=== PATIENT | male | born 1960 | race Caucasian/White ===

== ENCOUNTER → 2019-03-15 | Outpatient (REF) | payer OTHER, MEDICAID ==
[~2019-03-15] MED LIST: ASPI-527 PO; ASPI81TA45 PO; ATOR80TA59 PO; BUPR150T5 PO; CARV3.12 PO; CIPR-249 PO; CORE6.25 PO; FLAG500T PO; FLUO20CA19 PO; GABA-843 PO; HYDR-3716 PO; HYDR1CAP25 PO; LISI10TA4 PO; OMEP1CAP73 PO; PERC5TAB12 PO; PLAV1TAB2 PO; VARE05TA PO
[2019-03-15 18:05] LABS: BASO # 0.1 10^3/uL (0.0-0.2); BASO % 0.6 % (0.0-1.0); EOS # 0.2 10^3/uL (0.0-0.5); EOS % 1.5 % (0.0-3.0); HEMATOCRIT 50.6 % (42.0-52.0); HEMOGLOBIN 16.2 g/dl (13.5-17.5); LYMPH # 1.4 10^3/uL (1.5-5.0); LYMPH % 14.1 % (24.0-44.0); MEAN CORPUSCULAR HEMOGLOBIN 29.3 pg (27.0-33.0); MEAN CORPUSCULAR VOLUME 91.5 fl (80.0-96.0); MONO # 1.1 10^3/uL (0.0-0.8); MONO % 10.8 % (0.0-5.0); NEUTROPHILS % 72.1 % (36.0-66.0); PLATELET COUNT, AUTOMATED 318 10^3/uL (150-450); RED BLOOD COUNT 5.53 10^6/uL (4.30-6.10); WHITE BLOOD COUNT 9.7 10^3/uL (4.0-10.0)
[2019-03-15 18:32] LABS: ALBUMIN 4.1 GM/DL (3.2-5.2); ALT/SGPT 29 U/L (12-78); BILIRUBIN,TOTAL 0.4 MG/DL (0.2-1.0); BLOOD UREA NITROGEN 21 MG/DL (7-18); CALCIUM LEVEL 9.3 MG/DL (8.5-10.1); CARBON DIOXIDE LEVEL 26 MEQ/L (21-32); CHLORIDE LEVEL 104 MEQ/L (98-107); CHOLESTEROL LEVEL 134 MG/DL (<200); CHOLESTEROL RISK RATIO 2.627 (<5); CREATININE FOR GFR 1.16 MG/DL (0.70-1.30); FREE T4 1.06 NG/DL (0.76-1.46); GLOMERULAR FILTRATION RATE > 60.0 (>56); GLUCOSE, FASTING 117 MG/DL (70-100); HDL CHOLESTEROL 51 MG/DL (>40); LDL CHOLESTEROL 51 MG/DL (<100); NON-HDL-C 83 MG/DL; POTASSIUM SERUM 5.5 MEQ/L (3.5-5.1); SODIUM LEVEL 136 MEQ/L (136-145); THYROID STIMULATING HORMONE 0.738 uIU/ML (0.358-3.740); TOTAL PROTEIN 7.6 GM/DL (6.4-8.2); TRIGLYCERIDES LEVEL 161 MG/DL (<150)
[2019-03-15 18:35] LABS: TOTAL 25(OH) VITAMIN D 16.4 NG/ML (30.0-100.0)
[2019-03-15 18:54] LABS: HEMOGLOBIN A1c 6.3 %
== END ==
LOC: M LAB REF 17:06
PROVIDERS: ATTEND Family Medicine
DX: I25.10 Atherosclerotic heart disease of native coronary artery without angina pectoris (principal); E11.9 Type 2 diabetes mellitus without complications

== ENCOUNTER → 2019-03-23 | Outpatient (CLI) | payer MEDICAID | LOC: M OUTALCOH 07:46 | PROVIDERS: ATTEND Psychiatry & Neurology Addiction Medicine | DX: F12.20 Cannabis dependence, uncomplicated (principal) ==

== ENCOUNTER → 2019-03-31 | Outpatient (RCR) | payer MEDICAID | LOC: M OUTALCOH 13:22 | PROVIDERS: ATTEND Psychiatry & Neurology Addiction Medicine | DX: F12.20 Cannabis dependence, uncomplicated (principal); F17.200 Nicotine dependence, unspecified, uncomplicated ==

== ENCOUNTER → 2019-04-14 | Outpatient (REF) | payer MEDICAID, OTHER ==
[~2019-04-14] MED LIST changes: -FLUO20CA19 PO; +FLUO20CA22 PO
[2019-04-14 12:21] LABS: BASO % 0.6 % (0.0-1.0); EOS # 0.3 10^3/uL (0.0-0.5); EOS % 3.8 % (0.0-3.0); HEMATOCRIT 47.2 % (42.0-52.0); HEMOGLOBIN 15.1 g/dl (13.5-17.5); LYMPH # 1.8 10^3/uL (1.5-5.0); LYMPH % 26.1 % (24.0-44.0); MEAN CORPUSCULAR HEMOGLOBIN 29.3 pg (27.0-33.0); MEAN CORPUSCULAR VOLUME 91.7 fl (80.0-96.0); MONO # 0.7 10^3/uL (0.0-0.8); MONO % 9.9 % (0.0-5.0); NEUTROPHILS # 4.1 10^3/uL (1.5-8.5); NEUTROPHILS % 58.7 % (36.0-66.0); PLATELET COUNT, AUTOMATED 294 10^3/uL (150-450); RED BLOOD COUNT 5.15 10^6/uL (4.30-6.10); WHITE BLOOD COUNT 6.9 10^3/uL (4.0-10.0)
[2019-04-14 12:40] LABS: ALBUMIN 3.9 GM/DL (3.2-5.2); ALT/SGPT 32 U/L (12-78); BILIRUBIN,TOTAL 0.2 MG/DL (0.2-1.0); BLOOD UREA NITROGEN 18 MG/DL (7-18); CALCIUM LEVEL 9.3 MG/DL (8.5-10.1); CARBON DIOXIDE LEVEL 30 MEQ/L (21-32); CHLORIDE LEVEL 103 MEQ/L (98-107); CREATININE FOR GFR 0.99 MG/DL (0.70-1.30); GLOMERULAR FILTRATION RATE > 60.0 (>56); GLUCOSE, FASTING 136 MG/DL (70-100); POTASSIUM SERUM 4.5 MEQ/L (3.5-5.1); SODIUM LEVEL 142 MEQ/L (136-145); TOTAL PROTEIN 6.7 GM/DL (6.4-8.2)
[2019-04-14 13:07] LABS: HEMOGLOBIN A1c 6.3 %
== END ==
LOC: M LAB REF 11:33
PROVIDERS: ATTEND Family Medicine Addiction Medicine
DX: E11.9 Type 2 diabetes mellitus without complications (principal)

== ENCOUNTER 2019-06-10 17:02 | Emergency (ER) | payer MEDICAID ==
[~2019-06-10] VITALS: Ht 179.3 cm; Wt 90.7 kg
[2019-06-10 17:06] VITALS: BP 222/103
[2019-06-10] MEDS ORDERED: METF500T13 PO (17:22)
[2019-06-10] MEDS ORDERED: SUBO8MIS PO (17:22)
== END 2019-06-10 18:17 | disposition left against medical advice (07) ==
LOC: M ED 17:02
DX: Z53.21 Procedure and treatment not carried out due to patient leaving prior to being seen by health care provider (principal)

== ENCOUNTER → 2019-12-19 | Outpatient (REF) | payer OTHER ==
[~2019-12-19] MED LIST changes: +METF500T13 PO; +SUBO8MIS PO
== END ==
LOC: M LAB REF 15:31
PROVIDERS: ATTEND Surgery
DX: U07.1 COVID-19 (principal)

== ENCOUNTER 2020-09-25 07:34 | Emergency (ER) | payer OTHER ==
[~2020-09-25] VITALS: Ht 177.8 cm; Wt 83.2 kg
[~2020-09-25 07:34] MED LIST changes: +GABA-282 PO; -GABA-843 PO; +LISI10TA22 PO; -LISI10TA4 PO
[2020-09-25 07:45] VITALS: BP 158/72
== END 2020-09-25 09:11 | disposition left against medical advice (07) ==
LOC: M ED 07:34
DX: Z53.21 Procedure and treatment not carried out due to patient leaving prior to being seen by health care provider (principal)

== ENCOUNTER 2020-11-08 11:26 | Emergency (ER) | payer MEDICAID, OTHER ==
[~2020-11-08] VITALS: Ht 165.1 cm; Wt 84.1 kg
[2020-11-08] MEDS ORDERED: CLON-412 (11:37)
[2020-11-08] MEDS ORDERED: METO1TAB7 (11:37)
[2020-11-08] MEDS ORDERED: LISI20TA33 (11:37)
[2020-11-08 14:06] LABS: C REACTIVE PROTEIN QUANTITATIV 13.2 MG/DL (0.00-0.30)
[2020-11-08 14:42] LABS: BASO % 0.3 % (0.0-1.0); EOS # 0.1 10^3/uL (0.0-0.5); EOS % 0.9 % (0.0-3.0); HEMATOCRIT 37.7 % (42.0-52.0); HEMOGLOBIN 12.2 g/dl (13.5-17.5); LYMPH % 7.3 % (24.0-44.0); MEAN CORPUSCULAR HEMOGLOBIN 29.7 pg (27.0-33.0); MEAN CORPUSCULAR HGB CONC 32.4 g/dl (32.0-36.5); MEAN CORPUSCULAR VOLUME 91.7 fl (80.0-96.0); MONO # 1.3 10^3/uL (0.0-0.8); MONO % 9.1 % (2.0-8.0); NEUTROPHILS # 11.4 10^3/uL (1.5-8.5); NEUTROPHILS % 81.8 % (36.0-66.0); PLATELET COUNT, AUTOMATED 334 10^3/uL (150-450); RED BLOOD COUNT 4.11 10^6/uL (4.30-6.10); WHITE BLOOD COUNT 13.9 10^3/uL (4.0-10.0)
[2020-11-08 15:16] LABS: ERYTHROCYTE SEDIMENTATION RATE 57 mm/hr (0-20)
[2020-11-08] MEDS ORDERED: ACETAMINOPHEN TAB 650MG DOSE (2X325MG) PO ONE (15:50)
[2020-11-08] MEDS ORDERED: cefTRIAXone SOD 1 GM in D5W MINI-BAG PLUS 50 ML IV ONE (17:20)
--- NOTE | 2020-11-08 17:49 | REP ---
INDICATION: swelling pain/trauma/blood thinner COMPARISON: None. TECHNIQUE: Real time compression and duplex Doppler interrogation of the right lower extremity deep venous system is performed, including the left common femoral vein.Compression of the right peroneal and posterior tibial veins is performed. FINDINGS: The right common femoral, superficial femoral and popliteal veins are fully compressible with transducer pressure and demonstrate normal spontaneous and phasic flow, without evidence of deep venous thrombosis.The left common femoral vein demonstrates no thrombus.The right peroneal and posterior tibial veins not be seen due to soft tissue edema.. IMPRESSION: No evidence of deep venous thrombosis of the right lower extremity femoral popliteal venous system.The visualized right peroneal and posterior tibial veins demonstrate no thrombus. <Electronically signed by Kris Mccabe > 11/08/20 [id number]
--- NOTE | 2020-11-08 17:57 | REP ---
INDICATION: fall COMPARISON: 04/14/2013 TECHNIQUE: Five views right knee. FINDINGS: There is no evidence of acute fracture, dislocation, or intrinsic bone disease.Moderate soft tissue swelling is seen of the anterior soft tissues. There is mild medial joint space narrowing. Tiny spur is noted of the superior pole of the patella. Two metallic clips are seen in the medial soft tissues. Vascular calcifications are noted. IMPRESSION: No fracture or dislocation. Anterior soft tissue swelling. <Electronically signed by Kris Mccabe > 11/08/20 [id number]
[2020-11-08 18:27] LABS: BILIRUBIN,DIRECT 0.2 MG/DL (0.0-0.2); BILIRUBIN,TOTAL 0.6 MG/DL (0.2-1.0); TOTAL PROTEIN 6.7 GM/DL (6.4-8.2)
[2020-11-08] MEDS ORDERED: DOXY1CAP62 PO (19:24)
[2020-11-08 19:36] VITALS: BP 122/61
== END 2020-11-08 19:40 | disposition home or self-care (01) ==
LOC: M ED 11:26
DX: L03.115 Cellulitis of right lower limb (principal); F17.200 Nicotine dependence, unspecified, uncomplicated
CPT/HCPCS: 73564; 80047; 80076; 83690; 85025; 85652; 86140; 87040; 93971; 96365; 96366; 99283; J0696

== ENCOUNTER 2021-03-31 12:08 | Emergency (ER) | payer OTHER ==
[~2021-03-31] VITALS: Ht 177.8 cm; Wt 85.5 kg
[~2021-03-31 12:08] MED LIST changes: +CLON-412; +DOXY-443 PO; +LISI20TA33; +METO1TAB7
[2021-03-31] MEDS ORDERED: FLUO40CA PO (14:36)
[2021-03-31] MEDS ORDERED: PLAV1TAB2 PO (14:37)
[2021-03-31] MEDS ORDERED: ATOR40TA75 PO (14:37)
[2021-03-31] MEDS ORDERED: ASPI81TA26 PO (14:38)
[2021-03-31] MEDS ORDERED: MIRT1TAB15 PO (14:39)
[2021-03-31] MEDS ORDERED: METF-839 PO (14:40)
[2021-03-31] MEDS ORDERED: PANT40TA29 PO (14:41)
[2021-03-31] MEDS ORDERED: CLONI1TA PO (14:42)
[2021-03-31] MEDS ORDERED: PRAZ2CAP PO (14:45)
[2021-03-31 14:50] VITALS: BP 163/80
== END 2021-03-31 15:37 | disposition home or self-care (01) ==
LOC: M ED 12:08
DX: F31.9 Bipolar disorder, unspecified (principal); Z76.0 Encounter for issue of repeat prescription; I25.2 Old myocardial infarction; F32.A Depression, unspecified; E11.9 Type 2 diabetes mellitus without complications; I10 Essential (primary) hypertension; F17.200 Nicotine dependence, unspecified, uncomplicated; F11.10 Opioid abuse, uncomplicated

== ENCOUNTER 2021-06-28 17:02 | Emergency (ER) | payer OTHER, SELFPAY ==
[~2021-06-28] VITALS: Ht 177.8 cm; Wt 88.2 kg
[~2021-06-28 17:02] MED LIST changes: +ASPI81TA26 PO; +ATOR40TA75 PO; +BUPR-71 PO; -BUPR150T5 PO; +CLONI1TA PO; +FLUO40CA PO; +METF-839 PO; +MIRT1TAB15 PO; +PANT40TA29 PO; +PRAZ2CAP PO
[2021-06-28] MEDS ORDERED: ACETAMINOPHEN 500 MG TAB PO ONE (20:00)
[2021-06-29 00:18] LABS: AMPHETAMINES LEVEL URINE NEGATIVE (NEGATIVE); BARBITURATES URINE NEGATIVE (NEGATIVE); BENZODIAZEPINES URINE NEGATIVE (NEGATIVE); CANNABINOIDS URINE POSITIVE (NEGATIVE); COCAINE METABOLITE URINE POSITIVE (NEGATIVE); METHADONE URINE NEGATIVE (NEGATIVE); OPIATES URINE NEGATIVE (NEGATIVE); PHENCYCLIDINE URINE NEGATIVE (NEGATIVE)
[2021-06-29 01:12] LABS: GC DNA AMPLIFICATION NEGATIVE (NEGATIVE)
[2021-06-29] MEDS ORDERED: CIPROFLOXACIN 500MG TABLET PO ONE (01:55)
[2021-06-29] MEDS ORDERED: CIPR-249 PO (02:03)
[2021-06-29 02:30] VITALS: BP 123/67
== END 2021-06-29 02:29 | disposition home or self-care (01) ==
LOC: M ED 17:02
DX: N39.0 Urinary tract infection, site not specified (principal); E11.9 Type 2 diabetes mellitus without complications; I10 Essential (primary) hypertension; I25.2 Old myocardial infarction; E78.5 Hyperlipidemia, unspecified; F31.9 Bipolar disorder, unspecified; K21.9 Gastro-esophageal reflux disease without esophagitis; M54.9 Dorsalgia, unspecified; Z95.5 Presence of coronary angioplasty implant and graft; Z79.899 Other long term (current) drug therapy; Z79.84 Long term (current) use of oral hypoglycemic drugs; Z79.82 Long term (current) use of aspirin; Z79.01 Long term (current) use of anticoagulants; F17.210 Nicotine dependence, cigarettes, uncomplicated; F12.20 Cannabis dependence, uncomplicated

== ENCOUNTER 2021-07-01 16:46 | Inpatient (IN) | payer MEDICAID, OTHER ==
[~2021-07-01] VITALS: Ht 182.9 cm; Wt 90.4 kg
[2021-07-01] MEDS ORDERED: CLOPIDOGREL 300 MG TAB (PLAVIX) PO ONE (17:05)
[2021-07-01] MEDS ORDERED: ASPIRIN 81 MG CHEW TABLET PO ONE (17:05)
[2021-07-01] MEDS ORDERED: NITROGLYCERIN 0.4 MG SUBL TABLET SL PRN (17:05)
[2021-07-01] MEDS ORDERED: FUROSEMIDE 40MG/4ML VIAL (J1940) IV ONE (17:15)
[2021-07-01 17:52] LABS: BASO # 0.1 10^3/uL (0.0-0.2); BASO % 0.3 % (0.0-1.0); HEMATOCRIT 47.4 % (42.0-52.0); LYMPH # 0.4 10^3/uL (1.5-5.0); LYMPH % 2.9 % (24.0-44.0); MEAN CORPUSCULAR HEMOGLOBIN 29.4 pg (27.0-33.0); MEAN CORPUSCULAR HGB CONC 31.6 g/dl (32.0-36.5); MEAN CORPUSCULAR VOLUME 92.9 fl (80.0-96.0); MONO # 0.7 10^3/uL (0.0-0.8); MONO % 4.5 % (2.0-8.0); NEUTROPHILS # 13.5 10^3/uL (1.5-8.5); NEUTROPHILS % 90.9 % (36.0-66.0); PLATELET COUNT, AUTOMATED 344 10^3/uL (150-450); WHITE BLOOD COUNT 14.8 10^3/uL (4.0-10.0)
[2021-07-01] MEDS ORDERED: NALOXONE INJ 0.4MG/1ML VIAL (J2310 PER 1MG) IV STA ×3 (17:59→19:48)
[2021-07-01] MEDS ORDERED: LISI20TA33 (18:01)
[2021-07-01] MEDS ORDERED: MULT-90 (18:01)
[2021-07-01] MEDS ORDERED: MIRT-10 (18:01)
[2021-07-01] MEDS ORDERED: OMEP-173 (18:01)
[2021-07-01] MEDS ORDERED: BUPR-71 (18:01)
[2021-07-01] MEDS ORDERED: ALBU8.5H (18:01)
[2021-07-01] MEDS ORDERED: CIPR500T39 (18:01)
[2021-07-01] MEDS ORDERED: METF500T13 (18:01)
[2021-07-01] MEDS ORDERED: AZITHROMYCIN INJ 500 MG, VIAL MATE ADAPTER 1 EACH in NS 250 ML IV ONE (18:05)
[2021-07-01] MEDS ORDERED: cefTRIAXone SOD 2 GM in D5W MINI-BAG PLUS 50 ML IV ONE (18:05)
[2021-07-01] MEDS ORDERED: VANCOMYCIN HCL 1,750 MG in IV FLUID PLACE HOLDER 1 EA IV ONE (18:05)
[2021-07-01 18:07] LABS: INR 1.06; PROTHROMBIN TIME 14.2 SECONDS (12.7-14.5)
[2021-07-01 18:08] LABS: PARTIAL THROMBOPLASTIN TIME 28.4 SECONDS (25.9-37.0)
[2021-07-01 18:28] LABS: ABG BASE EXCESS -6.4 (-2.0-2.0); ABG HCO3 22.4 MEQ/L (22.0-26.0); ABG O2 SATURATION 95.6 % (95.0-99.0); ABG PARTIAL PRESSURE CO2 57.4 mmHg (35.0-45.0); ABG PARTIAL PRESSURE O2 82.7 mmHg (75.0-100.0); ABG STANDARD HCO3 19.3 MEQ/L (22.0-26.0); ABG TOTAL CO2 24.2 MEQ/L (22.0-29.0)
[2021-07-01 18:29] LABS: ABG pH (ARTERIAL) 7.209 UNITS (7.350-7.450)
[2021-07-01 18:38] LABS: RSV AMPLIFICATION NEGATIVE (NEGATIVE)
[2021-07-01 18:39] LABS: CALCIUM LEVEL 9.2 MG/DL (8.5-10.1); CREATININE FOR GFR 1.97 MG/DL (0.70-1.30); GLOMERULAR FILTRATION RATE 37.4 (>56); POTASSIUM SERUM 5.2 MEQ/L (3.5-5.1)
[2021-07-01] MEDS ORDERED: VANCOMYCIN HCL 1,000 MG, VIAL MATE ADAPTER 1 EACH in NS 250 ML IV ONE (19:00)
[2021-07-01] MEDS ORDERED: HALOPERIDOL 5MG/ML VIAL (J1630 PER 1) IV ONE (19:20)
[2021-07-01 19:45] LABS: CK-MB VALUE MASS 537.5 NG/ML (<3.6); MB/CK RELATIVE INDEX 1.6 (< OR =4)
[2021-07-01] MEDS ORDERED: VANCOMYCIN HCL 750 MG, VIAL MATE ADAPTER 1 EACH in NS 250 ML IV ONE (20:00)
[2021-07-01] MEDS ORDERED: LIDOCAINE 2% 5ML JELLY UROJET TOP ONE (20:05)
[2021-07-01 20:42] LABS: AMPHETAMINES LEVEL URINE POSITIVE (NEGATIVE); BARBITURATES URINE NEGATIVE (NEGATIVE); BENZODIAZEPINES URINE NEGATIVE (NEGATIVE); CANNABINOIDS URINE NEGATIVE (NEGATIVE); COCAINE METABOLITE URINE NEGATIVE (NEGATIVE); METHADONE URINE NEGATIVE (NEGATIVE); OPIATES URINE NEGATIVE (NEGATIVE); PHENCYCLIDINE URINE NEGATIVE (NEGATIVE)
[2021-07-01] MEDS ORDERED: HEPARIN SOD (PORCINE) 5000UNITS/ML 1ML VIAL/SYRINGE IV PRN (21:50)
[2021-07-01] MEDS ORDERED: DEXTROSE 50% 50 ML SYRINGE IV PRN (21:50)
[2021-07-01] MEDS ORDERED: HEPARIN SOD (PORCINE) 5000UNITS/ML 1ML VIAL/SYRINGE IV ONE (21:50)
[2021-07-01] MEDS ORDERED: GLUCAGON INJ 1MG VIAL SC PRN (21:50)
[2021-07-01] MEDS ORDERED: GLUCOSE 4GM CHEW TABLET PO PRN (21:50)
[2021-07-01] MEDS ORDERED: NS 1,000 ML IV ONE (22:20)
[2021-07-01] MEDS ORDERED: IPRATROPIUM 0.5MG/ALBUTEROL 2.5MG INH SOL UD 3ML (DUONEB) INH PRN (22:20)
[2021-07-01] MEDS: HEPARIN DRIP 25,000 UNITS in IV 1 EA IV SCH (22:44)
[2021-07-01] MEDS: ATORVASTATIN 20 MG TAB PO SCH (23:46)
[2021-07-01 23:47] LABS: ALBUMIN 3.3 GM/DL (3.2-5.2); BILIRUBIN,TOTAL 0.3 MG/DL (0.2-1.0); CALCIUM LEVEL 8.6 MG/DL (8.5-10.1); CREATININE FOR GFR 1.88 MG/DL (0.70-1.30); GLOMERULAR FILTRATION RATE 39.4 (>56); MAGNESIUM LEVEL 1.8 MG/DL (1.8-2.4); POTASSIUM SERUM 4.9 MEQ/L (3.5-5.1); TOTAL PROTEIN 6.4 GM/DL (6.4-8.2)
[2021-07-01] MEDS: NS 1,000 ML IV SCH (23:47)
[2021-07-02] VITALS (13 sets, daily range): BP systolic 116–161; BP diastolic 63–90
[2021-07-02] MEDS ORDERED: CLOP75TA2 PO (00:15)
[2021-07-02] MEDS ORDERED: CIPR-249 PO (00:15)
[2021-07-02] MEDS ORDERED: ASPI-161 PO (00:15)
[2021-07-02] MEDS ORDERED: ATOR40TA75 PO (00:15)
[2021-07-02] MEDS ORDERED: BUPR15TASR PO (00:15)
[2021-07-02] MEDS ORDERED: METO1TAB7 PO (00:15)
[2021-07-02] MEDS ORDERED: MIRT-62 PO (00:15)
[2021-07-02] MEDS ORDERED: METF-839 PO (00:15)
[2021-07-02] MEDS ORDERED: PANT40TA29 PO (00:15)
[2021-07-02] MEDS ORDERED: CLONI1TA PO (00:15)
[2021-07-02] MEDS ORDERED: FLUO40CA PO (00:15)
[2021-07-02] MEDS ORDERED: PRAZ2CAP PO (00:15)
[2021-07-02] MEDS ORDERED: LISI20TA33 PO (00:15)
[2021-07-02] MEDS ORDERED: PATIENT COMMENT (00:16)
[2021-07-02] MEDS ORDERED: HOME MED LIST COMPLETE! XX SCH (00:20)
[2021-07-02] MEDS: PIPERACILLIN/TAZOBACTAM SOD 4.5 GM in D5W MINI-BAG PLUS 50 ML IV SCH ×4 (01:06→19:37)
[2021-07-02] MEDS: NS 1,000 ML IV SCH ×6 (01:29→19:59)
[2021-07-02] MEDS: ACETAMINOPHEN TAB 650MG DOSE (2X325MG) PO PRN (04:47)
[2021-07-02 05:44] LABS: BASO % 0.2 % (0.0-1.0); EOS % 0.2 % (0.0-3.0); HEMOGLOBIN 13.5 g/dl (13.5-17.5); LYMPH # 0.8 10^3/uL (1.5-5.0); LYMPH % 4.2 % (24.0-44.0); MEAN CORPUSCULAR HEMOGLOBIN 29.8 pg (27.0-33.0); MEAN CORPUSCULAR HGB CONC 32.1 g/dl (32.0-36.5); MEAN CORPUSCULAR VOLUME 92.7 fl (80.0-96.0); MONO # 0.9 10^3/uL (0.0-0.8); MONO % 4.5 % (2.0-8.0); NEUTROPHILS # 17.2 10^3/uL (1.5-8.5); NEUTROPHILS % 90.2 % (36.0-66.0); PLATELET COUNT, AUTOMATED 271 10^3/uL (150-450); RED BLOOD COUNT 4.53 10^6/uL (4.30-6.10)
[2021-07-02 05:57] LABS: APPEARANCE, URINE CLOUDY (CLEAR); BACTERIA, URINE AUTO NEGATIVE (NEGATIVE); BILIRUBIN, URINE AUTO NEGATIVE (NEGATIVE); BLOOD, URINE BLOOD 3+ (NEGATIVE); COLOR, URINE YELLOW (YELLOW); GLUCOSE, URINE (UA) AUTO NEGATIVE (NEGATIVE); KETONE, URINE AUTO NEGATIVE (NEGATIVE); LEUKOCYTE ESTERASE, URINE AUTO NEGATIVE (NEGATIVE); MUCUS, URINE SMALL (NEGATIVE); NITRITE, URINE AUTO NEGATIVE (NEGATIVE); PROTEIN, URINE AUTO 2+ mg/dL (NEGATIVE); RBC, URINE AUTO TNTC /HPF (0-3); SPECIFIC GRAVITY URINE AUTO 1.012 (1.002-1.035); SQUAMOUS EPITHELIAL CELL UR AU 1 /HPF (0-6); UROBILINOGEN, URINE AUTO 0.2 mg/dL (0.0-2.0); WBC, URINE AUTO 12 /HPF (0-3)
[2021-07-02] MEDS ORDERED: DOXYCYCLINE HYCLATE 100 MG in D5W MINI-BAG PLUS 100 ML IV SCH (06:00)
[2021-07-02 06:03] LABS: HEMOGLOBIN A1c 6.1 %
[2021-07-02 06:46] LABS: ALBUMIN 2.7 GM/DL (3.2-5.2); BILIRUBIN,DIRECT 0.1 MG/DL (0.0-0.2); BILIRUBIN,TOTAL 0.4 MG/DL (0.2-1.0); CALCIUM LEVEL 7.9 MG/DL (8.5-10.1); CHOLESTEROL RISK RATIO 1.481 (<5); CREATININE FOR GFR 2.09 MG/DL (0.70-1.30); GLOMERULAR FILTRATION RATE 34.9 (>56); POTASSIUM SERUM 4.9 MEQ/L (3.5-5.1); TOTAL PROTEIN 5.7 GM/DL (6.4-8.2)
[2021-07-02] MEDS: VANCOMYCIN HCL 750 MG, VIAL MATE ADAPTER 1 EACH in NS 250 ML IV SCH ×2 (08:04→20:54)
[2021-07-02] MEDS: CLOPIDOGREL 75 MG TAB PO SCH (08:05)
[2021-07-02 08:18] LABS: ABG BASE EXCESS -4.6 (-2.0-2.0); ABG HCO3 21.2 MEQ/L (22.0-26.0); ABG O2 SATURATION 91.1 % (95.0-99.0); ABG PARTIAL PRESSURE CO2 41.7 mmHg (35.0-45.0); ABG PARTIAL PRESSURE O2 60.8 mmHg (75.0-100.0); ABG STANDARD HCO3 20.6 MEQ/L (22.0-26.0); ABG TOTAL CO2 22.5 MEQ/L (22.0-29.0); ABG pH (ARTERIAL) 7.324 UNITS (7.350-7.450)
[2021-07-02 09:37] LABS: CK-MB VALUE MASS 693.2 NG/ML (<3.6); MB/CK RELATIVE INDEX 2.25 (< OR =4)
[2021-07-02] MEDS ORDERED: LORazepam 2 MG/ML VIAL IV STA ×2 (09:40→15:48)
[2021-07-02 10:31] LABS: MB/CK RELATIVE INDEX 2.59 (< OR =4)
[2021-07-02] MEDS ORDERED: SUBO2MIS SL (12:41)
[2021-07-02] MEDS: BUPRENORPHINE/NALOXONE 2-0.5MG SUBLINGUAL TABLET(SUBOXONE) SL SCH (14:18)
[2021-07-02 16:11] LABS: MB/CK RELATIVE INDEX 2.53 (< OR =4)
[2021-07-02 16:44] LABS: CK-MB VALUE MASS 583.7 NG/ML (<3.6)
[2021-07-02] MEDS: HEPARIN DRIP 25,000 UNITS in IV 1 EA IV SCH (17:03)
[2021-07-02] MEDS ORDERED: cefTRIAXone SOD 1 GM in D5W MINI-BAG PLUS 50 ML IV SCH (18:00)
[2021-07-02 19:51] LABS: MB/CK RELATIVE INDEX 1.87 (< OR =4)
[2021-07-02] MEDS: ATORVASTATIN 20 MG TAB PO SCH (20:53)
[2021-07-02] MEDS: ASPIRIN 325 MG TAB PO SCH (20:53)
[2021-07-02] MEDS: LIDOCAINE 5% (LIDODERM) PATCH TOP PRN (20:54)
[2021-07-02] MEDS: **NOTE PATIENT COMMENT** MISC XX SCH (21:00)
[2021-07-03] VITALS (17 sets, daily range): BP systolic 119–181; BP diastolic 58–90
[2021-07-03] MEDS: NS 1,000 ML IV SCH ×5 (00:06→20:53)
[2021-07-03] MEDS: PIPERACILLIN/TAZOBACTAM SOD 4.5 GM in D5W MINI-BAG PLUS 50 ML IV SCH ×4 (00:46→19:46)
[2021-07-03 05:10] LABS: BASO % 0.2 % (0.0-1.0); EOS # 0.1 10^3/uL (0.0-0.5); EOS % 0.8 % (0.0-3.0); HEMATOCRIT 34.1 % (42.0-52.0); LYMPH # 0.5 10^3/uL (1.5-5.0); LYMPH % 3.8 % (24.0-44.0); MEAN CORPUSCULAR HEMOGLOBIN 29.3 pg (27.0-33.0); MEAN CORPUSCULAR HGB CONC 32.3 g/dl (32.0-36.5); MEAN CORPUSCULAR VOLUME 90.9 fl (80.0-96.0); MONO # 0.6 10^3/uL (0.0-0.8); MONO % 4.9 % (2.0-8.0); NEUTROPHILS # 11.4 10^3/uL (1.5-8.5); NEUTROPHILS % 89.2 % (36.0-66.0); PLATELET COUNT, AUTOMATED 252 10^3/uL (150-450); RED BLOOD COUNT 3.75 10^6/uL (4.30-6.10); WHITE BLOOD COUNT 12.8 10^3/uL (4.0-10.0)
[2021-07-03 05:42] LABS: ALBUMIN 2.1 GM/DL (3.2-5.2); BILIRUBIN,DIRECT 0.1 MG/DL (0.0-0.2); BILIRUBIN,TOTAL 0.4 MG/DL (0.2-1.0); CALCIUM LEVEL 8.1 MG/DL (8.5-10.1); CREATININE FOR GFR 1.57 MG/DL (0.70-1.30); GLOMERULAR FILTRATION RATE 48.5 (>56); POTASSIUM SERUM 3.8 MEQ/L (3.5-5.1); TOTAL PROTEIN 5.4 GM/DL (6.4-8.2)
[2021-07-03] MEDS: HEPARIN DRIP 25,000 UNITS in IV 1 EA IV SCH ×2 (07:17→08:33)
[2021-07-03] MEDS: HumaLOG INSULIN (NovoLOG) PER UNIT SC SCH ×4 (07:30→20:50)
[2021-07-03 08:07] LABS: MAGNESIUM LEVEL 2.3 MG/DL (1.8-2.4)
[2021-07-03] MEDS: VANCOMYCIN HCL 750 MG, VIAL MATE ADAPTER 1 EACH in NS 250 ML IV SCH ×2 (08:54→20:46)
[2021-07-03] MEDS: CLOPIDOGREL 75 MG TAB PO SCH (08:55)
[2021-07-03] MEDS: ACETAMINOPHEN TAB 650MG DOSE (2X325MG) PO PRN ×2 (08:55→20:46)
[2021-07-03] MEDS: BUPRENORPHINE/NALOXONE 2-0.5MG SUBLINGUAL TABLET(SUBOXONE) SL SCH (09:18)
[2021-07-03] MEDS ORDERED: LIDOCAINE 1% MDV 20ML VIAL As Ordered ONE (14:33)
[2021-07-03] MEDS: ASPIRIN 325 MG TAB PO SCH (20:46)
[2021-07-03] MEDS: ATORVASTATIN 20 MG TAB PO SCH (20:46)
[2021-07-03] MEDS: **NOTE PATIENT COMMENT** MISC XX SCH (20:57)
[2021-07-04] VITALS (10 sets, daily range): BP systolic 118–155; BP diastolic 60–78
[2021-07-04] MEDS: PIPERACILLIN/TAZOBACTAM SOD 4.5 GM in D5W MINI-BAG PLUS 50 ML IV SCH ×4 (00:47→18:05)
[2021-07-04] MEDS: HEPARIN DRIP 25,000 UNITS in IV 1 EA IV SCH ×2 (00:49→12:16)
[2021-07-04] MEDS: ACETAMINOPHEN TAB 650MG DOSE (2X325MG) PO PRN ×3 (04:42→23:32)
[2021-07-04 04:54] LABS: BASO # 0.1 10^3/uL (0.0-0.2); BASO % 0.4 % (0.0-1.0); EOS # 0.2 10^3/uL (0.0-0.5); EOS % 1.7 % (0.0-3.0); HEMATOCRIT 30.7 % (42.0-52.0); HEMOGLOBIN 9.9 g/dl (13.5-17.5); LYMPH # 0.6 10^3/uL (1.5-5.0); LYMPH % 5.1 % (24.0-44.0); MEAN CORPUSCULAR HEMOGLOBIN 29.6 pg (27.0-33.0); MEAN CORPUSCULAR HGB CONC 32.2 g/dl (32.0-36.5); MEAN CORPUSCULAR VOLUME 91.9 fl (80.0-96.0); MONO # 0.7 10^3/uL (0.0-0.8); MONO % 5.4 % (2.0-8.0); NEUTROPHILS # 10.4 10^3/uL (1.5-8.5); NEUTROPHILS % 85.8 % (36.0-66.0); PLATELET COUNT, AUTOMATED 252 10^3/uL (150-450); RED BLOOD COUNT 3.34 10^6/uL (4.30-6.10); WHITE BLOOD COUNT 12.1 10^3/uL (4.0-10.0)
[2021-07-04 05:27] LABS: ALT/SGPT 291 U/L (12-78); BILIRUBIN,DIRECT 0.2 MG/DL (0.0-0.2); BILIRUBIN,TOTAL 0.5 MG/DL (0.2-1.0); BLOOD UREA NITROGEN 22 MG/DL (7-18); CARBON DIOXIDE LEVEL 25 MEQ/L (21-32); CHLORIDE LEVEL 113 MEQ/L (98-107); CREATININE FOR GFR 1.26 MG/DL (0.70-1.30); GLOMERULAR FILTRATION RATE > 60.0 (>56); GLUCOSE, FASTING 117 MG/DL (70-100); MAGNESIUM LEVEL 1.7 MG/DL (1.8-2.4); POTASSIUM SERUM 3.6 MEQ/L (3.5-5.1); SODIUM LEVEL 145 MEQ/L (136-145); TOTAL PROTEIN 4.8 GM/DL (6.4-8.2)
[2021-07-04] MEDS ORDERED: MAG SULF 1GM/100ML (MAG RUN) 1 GM in IV 1 EA IV ONE (06:00)
[2021-07-04] MEDS ORDERED: VANCOMYCIN HCL 1,000 MG, VIAL MATE ADAPTER 1 EACH in NS 250 ML IV SCH (08:00)
[2021-07-04] MEDS: NS 1,000 ML IV SCH ×3 (08:11→23:15)
[2021-07-04] MEDS: HumaLOG INSULIN (NovoLOG) PER UNIT SC SCH ×4 (08:12→21:00)
[2021-07-04] MEDS: CLOPIDOGREL 75 MG TAB PO SCH (08:15)
[2021-07-04] MEDS: BUPRENORPHINE/NALOXONE 2-0.5MG SUBLINGUAL TABLET(SUBOXONE) SL SCH (09:57)
[2021-07-04] MEDS: BENZONATATE 100MG CAPSULE PO PRN ×2 (11:16→18:29)
[2021-07-04] MEDS ORDERED: SODIUM CHLORIDE NASAL 0.65% SPRAY BTL (OCEAN) PRN (13:00)
[2021-07-04] MEDS ORDERED: HEPARIN SOD (PORCINE) 5000UNITS/ML 1ML VIAL/SYRINGE SQ ONE (18:50)
[2021-07-04] MEDS ORDERED: CALCIUM CARBONATE 500 MG CHEW U/D PO PRN (19:45)
[2021-07-04] MEDS: ATORVASTATIN 20 MG TAB PO SCH (20:05)
[2021-07-04] MEDS: AUGMENTIN 875 MG TAB PO SCH (20:05)
[2021-07-04] MEDS: ASPIRIN 325 MG TAB PO SCH (20:05)
[2021-07-04] MEDS: **NOTE PATIENT COMMENT** MISC XX SCH (21:21)
[2021-07-04] MEDS: LIDOCAINE 5% (LIDODERM) PATCH TOP PRN (23:31)
[2021-07-05] VITALS: BP 133/64
[2021-07-05] MEDS: BENZONATATE 100MG CAPSULE PO PRN ×3 (02:02→20:07)
[2021-07-05 04:00] VITALS: BP 151/70
[2021-07-05] MEDS: HEPARIN SOD (PORCINE) 5000UNITS/ML 1ML VIAL/SYRINGE SQ SCH ×3 (05:04→22:29)
[2021-07-05 05:25] LABS: BASO # 0.1 10^3/uL (0.0-0.2); BASO % 0.5 % (0.0-1.0); EOS # 0.3 10^3/uL (0.0-0.5); EOS % 2.4 % (0.0-3.0); HEMATOCRIT 31.8 % (42.0-52.0); HEMOGLOBIN 10.4 g/dl (13.5-17.5); LYMPH # 0.5 10^3/uL (1.5-5.0); LYMPH % 4.8 % (24.0-44.0); MEAN CORPUSCULAR HEMOGLOBIN 29.5 pg (27.0-33.0); MEAN CORPUSCULAR HGB CONC 32.7 g/dl (32.0-36.5); MEAN CORPUSCULAR VOLUME 90.1 fl (80.0-96.0); MONO # 0.9 10^3/uL (0.0-0.8); MONO % 8.5 % (2.0-8.0); NEUTROPHILS # 8.3 10^3/uL (1.5-8.5); NEUTROPHILS % 81.5 % (36.0-66.0); PLATELET COUNT, AUTOMATED 281 10^3/uL (150-450); RED BLOOD COUNT 3.53 10^6/uL (4.30-6.10); WHITE BLOOD COUNT 10.2 10^3/uL (4.0-10.0)
[2021-07-05 05:58] LABS: ALT/SGPT 213 U/L (12-78); BILIRUBIN,DIRECT 0.1 MG/DL (0.0-0.2); BILIRUBIN,TOTAL 0.5 MG/DL (0.2-1.0); BLOOD UREA NITROGEN 15 MG/DL (7-18); CALCIUM LEVEL 8.1 MG/DL (8.5-10.1); CARBON DIOXIDE LEVEL 26 MEQ/L (21-32); CHLORIDE LEVEL 114 MEQ/L (98-107); CREATININE FOR GFR 1.04 MG/DL (0.70-1.30); GLOMERULAR FILTRATION RATE > 60.0 (>56); GLUCOSE, FASTING 115 MG/DL (70-100); MAGNESIUM LEVEL 1.7 MG/DL (1.8-2.4); POTASSIUM SERUM 3.9 MEQ/L (3.5-5.1); SODIUM LEVEL 146 MEQ/L (136-145); TOTAL PROTEIN 4.9 GM/DL (6.4-8.2)
[2021-07-05] MEDS: HumaLOG INSULIN (NovoLOG) PER UNIT SC SCH ×4 (07:30→20:00)
[2021-07-05 07:35] VITALS: BP 159/81
[2021-07-05] MEDS ORDERED: MAG SULF 1GM/100ML (MAG RUN) 1 GM in IV 1 EA IV ONE (08:00)
[2021-07-05] MEDS: NS 1,000 ML IV SCH (08:36)
[2021-07-05] MEDS: CLOPIDOGREL 75 MG TAB PO SCH (08:37)
[2021-07-05] MEDS: PANTOPRAZOLE 40MG TAB (PROTONIX) PO SCH (08:37)
[2021-07-05] MEDS: AUGMENTIN 875 MG TAB PO SCH ×2 (08:37→20:08)
[2021-07-05] MEDS: BUPRENORPHINE/NALOXONE 2-0.5MG SUBLINGUAL TABLET(SUBOXONE) SL SCH (08:37)
[2021-07-05] MEDS: ACETAMINOPHEN TAB 650MG DOSE (2X325MG) PO PRN ×3 (08:37→23:37)
[2021-07-05] MEDS ORDERED: METOPROLOL TART 25 MG TABLET PO SCH (09:00)
[2021-07-05 19:52] VITALS: BP 138/63
[2021-07-05] MEDS: **NOTE PATIENT COMMENT** MISC XX SCH (20:01)
[2021-07-05] MEDS: ATORVASTATIN 20 MG TAB PO SCH (20:07)
[2021-07-05] MEDS: ASPIRIN 325 MG TAB PO SCH (20:07)
[2021-07-05] MEDS: CARVedilol 6.25 MG TAB PO SCH (20:07)
[2021-07-05] MEDS ORDERED: CEPACOL LOZENGE PO PRN (22:05)
[2021-07-05] MEDS: LIDOCAINE 5% (LIDODERM) PATCH TOP PRN (23:37)
[2021-07-06 04:00] LABS: BASO # 0.1 10^3/uL (0.0-0.2); BASO % 0.4 % (0.0-1.0); EOS # 0.3 10^3/uL (0.0-0.5); EOS % 2.3 % (0.0-3.0); HEMATOCRIT 29.6 % (42.0-52.0); HEMOGLOBIN 9.7 g/dl (13.5-17.5); LYMPH # 0.8 10^3/uL (1.5-5.0); LYMPH % 7.3 % (24.0-44.0); MEAN CORPUSCULAR HEMOGLOBIN 29.4 pg (27.0-33.0); MEAN CORPUSCULAR HGB CONC 32.8 g/dl (32.0-36.5); MEAN CORPUSCULAR VOLUME 89.7 fl (80.0-96.0); NEUTROPHILS # 8.9 10^3/uL (1.5-8.5); NEUTROPHILS % 77.3 % (36.0-66.0); PLATELET COUNT, AUTOMATED 277 10^3/uL (150-450); WHITE BLOOD COUNT 11.5 10^3/uL (4.0-10.0)
[2021-07-06 04:44] LABS: ALBUMIN 1.8 GM/DL (3.2-5.2); ALT/SGPT 164 U/L (12-78); BILIRUBIN,DIRECT 0.2 MG/DL (0.0-0.2); BILIRUBIN,TOTAL 0.5 MG/DL (0.2-1.0); BLOOD UREA NITROGEN 15 MG/DL (7-18); CALCIUM LEVEL 7.9 MG/DL (8.5-10.1); CARBON DIOXIDE LEVEL 27 MEQ/L (21-32); CHLORIDE LEVEL 111 MEQ/L (98-107); CREATININE FOR GFR 1.15 MG/DL (0.70-1.30); GLOMERULAR FILTRATION RATE > 60.0 (>56); GLUCOSE, FASTING 116 MG/DL (70-100); MAGNESIUM LEVEL 1.6 MG/DL (1.8-2.4); POTASSIUM SERUM 3.7 MEQ/L (3.5-5.1); SODIUM LEVEL 144 MEQ/L (136-145); TOTAL PROTEIN 4.8 GM/DL (6.4-8.2)
[2021-07-06] MEDS: MAG SULF 1GM/100ML (MAG RUN) 1 GM in IV 1 EA IV SCH ×2 (05:17→08:23)
[2021-07-06] MEDS: HEPARIN SOD (PORCINE) 5000UNITS/ML 1ML VIAL/SYRINGE SQ SCH ×3 (05:17→20:57)
[2021-07-06] MEDS: HumaLOG INSULIN (NovoLOG) PER UNIT SC SCH ×4 (07:30→21:00)
[2021-07-06] MEDS: CLOPIDOGREL 75 MG TAB PO SCH (08:21)
[2021-07-06] MEDS: AUGMENTIN 875 MG TAB PO SCH ×2 (08:21→20:55)
[2021-07-06] MEDS: PANTOPRAZOLE 40MG TAB (PROTONIX) PO SCH (08:21)
[2021-07-06] MEDS: BUPRENORPHINE/NALOXONE 2-0.5MG SUBLINGUAL TABLET(SUBOXONE) SL SCH (08:21)
[2021-07-06 08:22] VITALS: BP 112/61
[2021-07-06] MEDS: ACETAMINOPHEN TAB 650MG DOSE (2X325MG) PO PRN ×3 (08:22→20:56)
[2021-07-06] MEDS: CARVedilol 6.25 MG TAB PO SCH (08:23)
[2021-07-06] MEDS: BENZONATATE 100MG CAPSULE PO PRN ×2 (13:32→20:55)
[2021-07-06 16:00] VITALS: BP 117/64
[2021-07-06] MEDS: LIDOCAINE 5% (LIDODERM) PATCH TOP PRN (20:55)
[2021-07-06] MEDS: ASPIRIN 325 MG TAB PO SCH (20:55)
[2021-07-06] MEDS: CARVedilol 3.125 MG TAB PO SCH (20:56)
[2021-07-06] MEDS: ATORVASTATIN 20 MG TAB PO SCH (20:56)
[2021-07-06] MEDS: **NOTE PATIENT COMMENT** MISC XX SCH (20:57)
[2021-07-07] MEDS: HEPARIN SOD (PORCINE) 5000UNITS/ML 1ML VIAL/SYRINGE SQ SCH (05:28)
[2021-07-07 06:00] VITALS: BP 168/85
[2021-07-07 06:22] LABS: HEMATOCRIT 30.8 % (42.0-52.0); MEAN CORPUSCULAR HEMOGLOBIN 29.4 pg (27.0-33.0); MEAN CORPUSCULAR HGB CONC 32.5 g/dl (32.0-36.5); MEAN CORPUSCULAR VOLUME 90.6 fl (80.0-96.0); PLATELET COUNT, AUTOMATED 327 10^3/uL (150-450); WHITE BLOOD COUNT 14.8 10^3/uL (4.0-10.0)
[2021-07-07 06:49] LABS: ALT/SGPT 172 U/L (12-78); BILIRUBIN,DIRECT 0.2 MG/DL (0.0-0.2); BILIRUBIN,TOTAL 0.6 MG/DL (0.2-1.0); BLOOD UREA NITROGEN 15 MG/DL (7-18); CALCIUM LEVEL 8.6 MG/DL (8.5-10.1); CARBON DIOXIDE LEVEL 26 MEQ/L (21-32); CHLORIDE LEVEL 109 MEQ/L (98-107); CREATININE FOR GFR 1.27 MG/DL (0.70-1.30); GLOMERULAR FILTRATION RATE > 60.0 (>56); GLUCOSE, FASTING 114 MG/DL (70-100); MAGNESIUM LEVEL 1.8 MG/DL (1.8-2.4); POTASSIUM SERUM 3.7 MEQ/L (3.5-5.1); SODIUM LEVEL 143 MEQ/L (136-145); TOTAL PROTEIN 5.3 GM/DL (6.4-8.2)
[2021-07-07 07:15] LABS: LYMPHOCYTES 6 % (16-44); MONOCYTES 8 % (0-5); NEUTROPHILS 86 % (28-66); PLATELET ESTIMATE NORMAL (NORMAL)
[2021-07-07] MEDS: HumaLOG INSULIN (NovoLOG) PER UNIT SC SCH ×2 (08:21→12:11)
[2021-07-07 08:23] VITALS: BP 157/79
[2021-07-07] MEDS: CLOPIDOGREL 75 MG TAB PO SCH (08:23)
[2021-07-07] MEDS: AUGMENTIN 875 MG TAB PO SCH (08:23)
[2021-07-07] MEDS: CARVedilol 3.125 MG TAB PO SCH (08:23)
[2021-07-07] MEDS: BUPRENORPHINE/NALOXONE 2-0.5MG SUBLINGUAL TABLET(SUBOXONE) SL SCH (08:23)
[2021-07-07] MEDS: PANTOPRAZOLE 40MG TAB (PROTONIX) PO SCH (08:23)
[2021-07-07] MEDS ORDERED: FLUoxetine 20MG CAP PO SCH (09:00)
[2021-07-07] MEDS ORDERED: buPROPion **SR TABLET** (ZYBAN) 150MG PO SCH (09:00)
[2021-07-07] MEDS ORDERED: CLOP75TA2 PO (09:16)
[2021-07-07] MEDS ORDERED: PANT40TA29 PO (09:16)
[2021-07-07] MEDS ORDERED: ATOR1TAB21 PO (09:16)
[2021-07-07] MEDS ORDERED: FLUO40CA PO (09:16)
[2021-07-07] MEDS ORDERED: CARV3.12 PO (09:16)
[2021-07-07] MEDS ORDERED: ASPI-1 PO (09:16)
[2021-07-07] MEDS ORDERED: METF-839 PO (09:16)
[2021-07-07] MEDS ORDERED: AMOX875T2 PO ×2 (09:16→09:22)
[2021-07-07] MEDS ORDERED: BUPR15TASR PO ×2 (09:16→09:19)
== END 2021-07-07 13:30 | disposition home health service (06) | DRG 190 ==
LOC: M ED 16:46 → EDBD 16:46 → M ED INP 22:17 → ENRESERV 07-02 00:35 → M ICU 07-02 01:14 → M MS5PR 07-06 15:39
PROVIDERS: ADMIT Family Medicine; ATTEND Internal Medicine
PROC: 0K9 Muscles, Drainage (ICD-10-PCS; principal; 2021-07-03 11:30)
DX: I21.3 ST elevation (STEMI) myocardial infarction of unspecified site (principal); J69.0 Pneumonitis due to inhalation of food and vomit; J96.01 Acute respiratory failure with hypoxia; J96.02 Acute respiratory failure with hypercapnia; G93.41 Metabolic encephalopathy; E87.2 Acidosis; A48.0 Gas gangrene; N17.9 Acute kidney failure, unspecified; M62.82 Rhabdomyolysis; E11.9 Type 2 diabetes mellitus without complications; Z95.2 Presence of prosthetic heart valve; E78.5 Hyperlipidemia, unspecified; F19.10 Other psychoactive substance abuse, uncomplicated; F31.9 Bipolar disorder, unspecified; I10 Essential (primary) hypertension; I25.10 Atherosclerotic heart disease of native coronary artery without angina pectoris; M21.372 Foot drop, left foot; R74.01 Elevation of levels of liver transaminase levels; Z59.00 Homelessness unspecified; Z79.899 Other long term (current) drug therapy; Z79.82 Long term (current) use of aspirin

== ENCOUNTER → 2022-02-26 | Outpatient (CLI) | payer MEDICAID ==
[~2022-02-26] MED LIST changes: +ALBU8.5H; +AMOX875T2 PO; +ASPI-1 PO; +ASPI-161 PO; +ATOR1TAB21 PO; +BUPR-71; +BUPR15TASR PO; +CIPR500T39; +CLOP75TA2 PO; +CLOP75TA99 PO; +LISI20TA33 PO; +METF500T13; +METO1TAB7 PO; +MIRT-10; +MIRT-62 PO; +MULT-90; +OMEP-173; +PATIENT COMMENT; -PLAV1TAB2 PO; +SUBO2MIS SL
[2022-02-26 17:10] LABS: ALBUMIN 3.7 G/DL (3.2-5.2); ALKALINE PHOSPHATASE 81 U/L (46-116); ALT/SGPT 16 U/L (7.0-40); AST/SGOT 16 U/L (<34); BILIRUBIN,TOTAL 0.4 MG/DL (0.3-1.2); BLOOD UREA NITROGEN 24 MG/DL (9-23); CALCIUM LEVEL 9.3 MG/DL (8.5-10.1); CARBON DIOXIDE LEVEL 29 MMOL/L (20-31); CHLORIDE LEVEL 105 MMOL/L (98-107); CREATININE FOR GFR 0.91 MG/DL (0.70-1.30); GLOMERULAR FILTRATION RATE > 60.0 (>56); GLUCOSE, FASTING 86 MG/DL (60-100); POTASSIUM SERUM 4.7 MMOL/L (3.5-5.1); SODIUM LEVEL 141 MMOL/L (136-145); TOTAL PROTEIN 6.7 G/DL (5.7-8.2)
[2022-02-26 17:53] LABS: HEPATITIS B SURFACE ANTIGEN NEGATIVE (NEGATIVE); HEPATITIS C VIRUS ABY INDEX 0.1 INDEX (<0.8); HIV 1&2 SCREEN CENTAUR NEGATIVE (NEGATIVE)
[2022-02-26 17:55] LABS: HEMATOCRIT 38.9 % (42.0-52.0); HEMOGLOBIN 12.4 g/dl (13.5-17.5); MEAN CORPUSCULAR HEMOGLOBIN 29.8 pg (27.0-33.0); MEAN CORPUSCULAR HGB CONC 31.9 g/dl (32.0-36.5); MEAN CORPUSCULAR VOLUME 93.5 fl (80.0-96.0); PLATELET COUNT, AUTOMATED 276 10^3/uL (150-450); RED BLOOD COUNT 4.16 10^6/uL (4.30-6.10); WHITE BLOOD COUNT 5.6 10^3/uL (4.0-10.0)
[2022-02-26 18:52] LABS: GC DNA AMPLIFICATION NEGATIVE (NEGATIVE)
== END ==
LOC: M WUC 10:22
PROVIDERS: ATTEND Family Medicine
DX: F11.20 Opioid dependence, uncomplicated (principal)

== ENCOUNTER 2022-08-31 09:24 | Emergency (ER) | payer OTHER ==
[~2022-08-31] VITALS: Ht 177.8 cm; Wt 108.7 kg
[2022-08-31 09:26] VITALS: BP 145/74; TEMP 96.1; O2SAT 95
== END 2022-08-31 14:03 | disposition left against medical advice (07) ==
LOC: M ED 10:53
DX: Z53.9 Procedure and treatment not carried out, unspecified reason (principal)

== ENCOUNTER 2022-10-10 19:47 | Emergency (ER) | payer OTHER, SELFPAY ==
[~2022-10-10] VITALS: Ht 177.8 cm; Wt 95.5 kg
[2022-10-11 02:57] VITALS: BP 128/70; TEMP 96.7; O2SAT 95
== END 2022-10-11 05:38 | disposition left against medical advice (07) ==
LOC: M ED 19:47
DX: Z53.21 Procedure and treatment not carried out due to patient leaving prior to being seen by health care provider (principal)

== ENCOUNTER 2023-01-17 10:42 | Emergency (ER) | payer OTHER, SELFPAY ==
[~2023-01-17] VITALS: Ht 177.8 cm; Wt 91.4 kg
[~2023-01-17 10:42] MED LIST changes: -MIRT-62 PO; +MIRT-88 PO
[2023-01-17 10:43] VITALS: TEMP 98.8
[2023-01-17 13:23] LABS: BASO # 0.1 10^3/uL (0.0-0.2); BASO % 0.7 % (0.0-1.0); EOS # 0.3 10^3/uL (0.0-0.5); EOS % 3.6 % (0.0-3.0); HEMATOCRIT 44.7 % (42.0-52.0); HEMOGLOBIN 14.5 g/dl (13.5-17.5); LYMPH # 1.6 10^3/uL (1.5-5.0); LYMPH % 21.1 % (24.0-44.0); MEAN CORPUSCULAR HEMOGLOBIN 28.4 pg (27.0-33.0); MEAN CORPUSCULAR HGB CONC 32.4 g/dl (32.0-36.5); MEAN CORPUSCULAR VOLUME 87.5 fl (80.0-96.0); MONO # 0.7 10^3/uL (0.0-0.8); MONO % 9.7 % (2.0-8.0); NEUTROPHILS # 4.8 10^3/uL (1.5-8.5); NEUTROPHILS % 64.5 % (36.0-66.0); PLATELET COUNT, AUTOMATED 288 10^3/uL (150-450); RED BLOOD COUNT 5.11 10^6/uL (4.30-6.10); WHITE BLOOD COUNT 7.4 10^3/uL (4.0-10.0)
[2023-01-17] MEDS ORDERED: KETOROLAC 30 MG/ML 1ML VIAL IV ONE (13:25)
[2023-01-17 13:34] LABS: INR 1.15; PROTHROMBIN TIME 14.3 SECONDS (12.5-14.5)
[2023-01-17] MEDS ORDERED: MEDR4PAK PO (14:41)
[2023-01-17 14:51] VITALS: BP 168/93; O2SAT 99
== END 2023-01-17 14:52 | disposition home or self-care (01) ==
LOC: M ED 10:42
DX: M54.31 Sciatica, right side (principal); I25.2 Old myocardial infarction; I10 Essential (primary) hypertension; F17.200 Nicotine dependence, unspecified, uncomplicated; K21.9 Gastro-esophageal reflux disease without esophagitis; E11.9 Type 2 diabetes mellitus without complications; F19.90 Other psychoactive substance use, unspecified, uncomplicated; F32.A Depression, unspecified; F41.9 Anxiety disorder, unspecified; Z79.84 Long term (current) use of oral hypoglycemic drugs; Z79.82 Long term (current) use of aspirin; Z79.899 Other long term (current) drug therapy
CPT/HCPCS: 80047; 83605; 85025; 85610; 85730; 96374; 99284; J1885

== ENCOUNTER 2023-07-18 10:45 | Emergency (ER) | payer OTHER ==
[~2023-07-18] VITALS: Ht 177.8 cm; Wt 82.9 kg
[~2023-07-18 10:45] MED LIST changes: -ASPI-161 PO; +ASPI-615 PO; +DOXY-323 PO; -DOXY-443 PO; +MEDR4PAK PO
[2023-07-18 10:46] VITALS: TEMP 98.2; O2SAT 96
[2023-07-18] MEDS: ACETAMINOPHEN 325 MG TAB PO ONE (11:32)
[2023-07-18 13:24] VITALS: BP 120/76
== END 2023-07-18 13:46 | disposition home or self-care (01) ==
LOC: M ED 10:45
DX: S00.83XA Contusion of other part of head, initial encounter (principal); W19.XXXA Unspecified fall, initial encounter; M54.50 Low back pain, unspecified; E11.9 Type 2 diabetes mellitus without complications; J44.9 Chronic obstructive pulmonary disease, unspecified; I10 Essential (primary) hypertension; F17.200 Nicotine dependence, unspecified, uncomplicated; Y92.009 Unspecified place in unspecified non-institutional (private) residence as the place of occurrence of the external cause; Y93.89 Activity, other specified; Y99.9 Unspecified external cause status; Z79.82 Long term (current) use of aspirin; Z79.02 Long term (current) use of antithrombotics/antiplatelets; Z79.4 Long term (current) use of insulin; Z79.899 Other long term (current) drug therapy

== ENCOUNTER 2023-08-28 17:35 | Emergency (ER) | payer OTHER ==
[~2023-08-28] VITALS: Ht 177.8 cm; Wt 83.1 kg
[~2023-08-28 17:35] MED LIST changes: +FLUO-365 PO; -FLUO20CA22 PO
[2023-08-28] MEDS ORDERED: SUBO8MIS SL (17:44)
[2023-08-28] MEDS ORDERED: MIRT-11 (17:44)
[2023-08-28] MEDS ORDERED: GABA-284 (17:44)
[2023-08-28] MEDS ORDERED: PRAZ2CAP (17:44)
[2023-08-28] MEDS: BUPRENORPHINE/NALOXONE 8-2MG SUBLINGUAL TABLET(SUBOXONE) SL ONE (18:59)
[2023-08-28 19:09] VITALS: BP 143/74; TEMP 98.6; O2SAT 97
[2023-08-28] MEDS ORDERED: ASPI-1 PO (19:11)
[2023-08-28] MEDS ORDERED: MIRT1TAB16 PO (19:11)
[2023-08-28] MEDS ORDERED: FLUO40CA PO (19:11)
[2023-08-28] MEDS ORDERED: BUPR-71 PO (19:11)
[2023-08-28] MEDS ORDERED: CARV3.12 PO (19:11)
[2023-08-28] MEDS ORDERED: METF500T13 PO (19:11)
[2023-08-28] MEDS ORDERED: CLOP75TA2 PO (19:11)
[2023-08-28] MEDS ORDERED: GABA-284 PO (19:11)
[2023-08-28] MEDS ORDERED: PRAZ1CAP PO (19:11)
[2023-08-28] MEDS ORDERED: PROT1TAB2 PO (19:11)
[2023-08-28] MEDS ORDERED: SUBO2MIS SL (19:11)
[2023-08-28] MEDS ORDERED: ATOR80TA59 PO (19:11)
[2023-08-28 19:31] VITALS: BP 143/74
[2023-08-28] MEDS: metFORMIN (GLUCOPHAGE) 500MG TAB PO ONE (19:31)
[2023-08-28] MEDS: CARVedilol 3.125 MG TAB PO ONE (19:31)
[2023-08-28] MEDS: ATORVASTATIN 20 MG TAB PO ONE (19:31)
[2023-08-28] MEDS: PRAZOSIN 1 MG CAP PO ONE (19:31)
[2023-08-28] MEDS: PANTOPRAZOLE 40MG TAB (PROTONIX) PO ONE (19:31)
[2023-08-28] MEDS: GABAPENTIN 400MG CAP PO ONE (19:31)
[2023-08-28] MEDS: ASPIRIN 325 MG TAB PO ONE (19:31)
[2023-08-28] MEDS: FLUoxetine 20MG CAP PO ONE (19:46)
[2023-08-28] MEDS ORDERED: buPROPion **SR TABLET** (ZYBAN) 150MG PO SCH (20:00)
== END 2023-08-28 19:49 | disposition home or self-care (01) ==
LOC: M ED 17:35
DX: Z76.0 Encounter for issue of repeat prescription (principal); S51.802D Unspecified open wound of left forearm, subsequent encounter; I25.2 Old myocardial infarction; E11.9 Type 2 diabetes mellitus without complications; I10 Essential (primary) hypertension; F19.10 Other psychoactive substance abuse, uncomplicated; F32.A Depression, unspecified; F10.10 Alcohol abuse, uncomplicated; F31.9 Bipolar disorder, unspecified; K21.9 Gastro-esophageal reflux disease without esophagitis; Z79.82 Long term (current) use of aspirin; Z79.02 Long term (current) use of antithrombotics/antiplatelets; Z79.4 Long term (current) use of insulin; Z79.899 Other long term (current) drug therapy

== ENCOUNTER → 2023-10-12 | Outpatient (REF) ==
[~2023-10-12] MED LIST changes: +GABA-284; +GABA-284 PO; +MIRT-11; +MIRT1TAB16 PO; +PRAZ1CAP PO; +PRAZ2CAP; +PROT1TAB2 PO; +SUBO8MIS SL
== END ==
LOC: M PLAIMG 13:18
PROVIDERS: ATTEND Internal Medicine
DX: M19.072 Primary osteoarthritis, left ankle and foot (principal); M25.552 Pain in left hip

== ENCOUNTER 2023-11-01 17:33 | Emergency (ER) | payer OTHER ==
[~2023-11-01 17:33] MED LIST changes: -GABA-284; -MIRT-11; +MIRT-11 PO; -PRAZ2CAP
[2023-11-01] MEDS ORDERED: FLUO-365 PO (18:02)
[2023-11-01] MEDS ORDERED: BUPR150T12 PO (18:02)
[2023-11-01] MEDS ORDERED: ASPI-226 PO (18:02)
[2023-11-01] MEDS ORDERED: FOLI1TAB11 PO (18:17)
[2023-11-01] MEDS ORDERED: CARV3.12 PO (18:18)
[2023-11-01 19:05] LABS: HEMATOCRIT 39.7 % (42.0-52.0); HEMOGLOBIN 13.2 g/dl (13.5-17.5); MEAN CORPUSCULAR HEMOGLOBIN 30.3 pg (27.0-33.0); MEAN CORPUSCULAR HGB CONC 33.2 g/dl (32.0-36.5); MEAN CORPUSCULAR VOLUME 91.3 fl (80.0-96.0); PLATELET COUNT, AUTOMATED 297 10^3/uL (150-450); RED BLOOD COUNT 4.35 10^6/uL (4.30-6.10); WHITE BLOOD COUNT 13.9 10^3/uL (4.0-10.0)
[2023-11-01] MEDS ORDERED: HOME MED LIST COMPLETE! XX SCH (19:10)
[2023-11-01 19:29] LABS: ALBUMIN 3.6 G/DL (3.2-5.2); ALKALINE PHOSPHATASE 99 U/L (46-116); ALT/SGPT 52 U/L (7.0-40); AST/SGOT 54 U/L (<34); BILIRUBIN,DIRECT 0.2 MG/DL (<0.4); BILIRUBIN,TOTAL 0.7 MG/DL (0.3-1.2); BLOOD UREA NITROGEN 22 MG/DL (9-23); CARBON DIOXIDE LEVEL 27 MMOL/L (20-31); CHLORIDE LEVEL 108 MMOL/L (98-107); CREATININE FOR GFR 0.85 MG/DL (0.70-1.30); GLOMERULAR FILTRATION RATE > 60.0 (>49); GLUCOSE, FASTING 111 MG/DL (74-106); SALICYLATE LEVEL < 3.0 MG/DL (<30); SODIUM LEVEL 140 MMOL/L (136-145); TOTAL PROTEIN 6.6 G/DL (5.7-8.2)
[2023-11-01 19:32] LABS: THYROID STIMULATING HORMONE 0.665 uIU/ML (0.55-4.78)
[2023-11-01 19:38] LABS: BARBITURATES URINE NEGATIVE (NEGATIVE); BENZODIAZEPINES URINE NEGATIVE (NEGATIVE); COCAINE METABOLITE URINE NEGATIVE (NEGATIVE); METHADONE URINE NEGATIVE (NEGATIVE); OPIATES URINE NEGATIVE (NEGATIVE); PHENCYCLIDINE URINE NEGATIVE (NEGATIVE)
[2023-11-01 19:41] LABS: AMPHETAMINES LEVEL URINE POSITIVE (NEGATIVE); CANNABINOIDS URINE POSITIVE (NEGATIVE)
[2023-11-01 20:04] LABS: ETHYL ALCOHOL (ETHANOL) < 0.003 % (0.000-0.010)
[2023-11-01] MEDS: BUPRENORPHINE/NALOXONE 8-2MG SUBLINGUAL TABLET(SUBOXONE) SL STA (20:12)
[2023-11-01] MEDS: MIRTAZAPINE 15 MG TAB PO SCH (20:58)
[2023-11-01] MEDS: buPROPion **XL** TABLET 150MG (WELLBUTRIN XL) PO SCH (20:58)
[2023-11-02] MEDS: BUPRENORPHINE/NALOXONE 8-2MG SUBLINGUAL TABLET(SUBOXONE) SL SCH (07:51)
[2023-11-02] MEDS: ASPIRIN 81MG ENTERIC TABLET PO SCH (07:51)
[2023-11-02] MEDS: FLUoxetine 20MG CAP PO SCH (07:52)
[2023-11-02] MEDS: ATORVASTATIN 20 MG TAB PO SCH (07:52)
[2023-11-02] MEDS: metFORMIN (GLUCOPHAGE) 500MG TAB PO SCH (07:52)
[2023-11-02] MEDS: CLOPIDOGREL 75 MG TAB PO SCH (07:52)
[2023-11-02 07:53] VITALS: BP 117/89
[2023-11-02] MEDS: CARVedilol 3.125 MG TAB PO SCH (07:53)
[2023-11-02] MEDS ORDERED: PRAZ2CAP PO (10:32)
[2023-11-02] MEDS ORDERED: ATOR40TA75 PO (10:32)
[2023-11-02] MEDS ORDERED: MIRT-11 PO (10:32)
[2023-11-02] MEDS ORDERED: CARV3.12 PO (10:32)
[2023-11-02] MEDS ORDERED: METF500T13 PO (10:32)
[2023-11-02] MEDS ORDERED: CLOP75TA2 PO (10:32)
[2023-11-02] MEDS ORDERED: FOLI1TAB11 PO (10:32)
[2023-11-02] MEDS ORDERED: FLUO-365 PO (10:32)
[2023-11-02] MEDS ORDERED: ASPI-226 PO (10:32)
[2023-11-02] MEDS ORDERED: BUPR150T12 PO (10:32)
[2023-11-02 11:00] VITALS: BP 134/79; TEMP 98.6; O2SAT 97
[2023-11-02] MEDS ORDERED: BUPRENORPHINE/NALOXONE 8-2MG SUBLINGUAL TABLET(SUBOXONE) SL SCH (21:00)
== END 2023-11-02 11:30 | disposition home or self-care (01) ==
LOC: M ED 17:33
DX: F19.959 Other psychoactive substance use, unspecified with psychoactive substance-induced psychotic disorder, unspecified (principal); I10 Essential (primary) hypertension; F32.A Depression, unspecified; F31.9 Bipolar disorder, unspecified; F43.10 Post-traumatic stress disorder, unspecified; Z79.82 Long term (current) use of aspirin; Z79.02 Long term (current) use of antithrombotics/antiplatelets; Z79.4 Long term (current) use of insulin; Z79.899 Other long term (current) drug therapy

== ENCOUNTER 2023-11-04 08:03 | Inpatient (IN) | payer OTHER, MEDICAID ==
[~2023-11-04] VITALS: Ht 180.3 cm; Wt 82.4 kg
[~2023-11-04 08:03] MED LIST changes: +ASPI-226 PO; +BUPR150T12 PO; +FOLI1TAB11 PO
[2023-11-04 10:02] LABS: BASO % 0.1 % (0.0-1.0); EOS % 0.1 % (0.0-3.0); HEMATOCRIT 38.6 % (42.0-52.0); HEMOGLOBIN 12.8 g/dl (13.5-17.5); LYMPH # 0.6 10^3/uL (1.5-5.0); LYMPH % 2.9 % (24.0-44.0); MEAN CORPUSCULAR HGB CONC 33.2 g/dl (32.0-36.5); MEAN CORPUSCULAR VOLUME 93.5 fl (80.0-96.0); MONO # 1.5 10^3/uL (0.0-0.8); MONO % 7.1 % (2.0-8.0); NEUTROPHILS # 18.2 10^3/uL (1.5-8.5); NEUTROPHILS % 88.9 % (36.0-66.0); PLATELET COUNT, AUTOMATED 254 10^3/uL (150-450); RED BLOOD COUNT 4.13 10^6/uL (4.30-6.10); WHITE BLOOD COUNT 20.5 10^3/uL (4.0-10.0)
[2023-11-04 10:20] LABS: INR 1.17; PROTHROMBIN TIME 14.6 SECONDS (12.5-14.5)
[2023-11-04 10:21] LABS: ALKALINE PHOSPHATASE 83 U/L (46-116); ALT/SGPT 33 U/L (7.0-40); AST/SGOT 14 U/L (<34); BILIRUBIN,DIRECT 0.2 MG/DL (<0.4); BILIRUBIN,TOTAL 0.7 MG/DL (0.3-1.2); BLOOD UREA NITROGEN 16 MG/DL (9-23); CALCIUM LEVEL 8.2 MG/DL (8.3-10.6); CARBON DIOXIDE LEVEL 26 MMOL/L (20-31); CHLORIDE LEVEL 106 MMOL/L (98-107); CREATININE FOR GFR 0.62 MG/DL (0.70-1.30); GLOMERULAR FILTRATION RATE > 60.0 (>49); GLUCOSE, FASTING 164 MG/DL (74-106); POTASSIUM SERUM 3.9 MMOL/L (3.5-5.1); SODIUM LEVEL 136 MMOL/L (136-145); TOTAL PROTEIN 5.9 G/DL (5.7-8.2)
[2023-11-04] MEDS ORDERED: VANCOMYCIN HCL IV ONE (11:05)
[2023-11-04] MEDS ORDERED: FLUID PLACE HOLDER IV ONE (11:05)
[2023-11-04] MEDS ORDERED: VANCOMYCIN HCL 750 MG, VIAL MATE ADAPTER 1 EACH in D5W 250 ML IV ONE (11:20)
[2023-11-04] MEDS: ceFAZolin SOD 1 GM in D5W MINI-BAG PLUS 50 ML IV ONE (11:22)
[2023-11-04] MEDS: BUPRENORPHINE/NALOXONE 8-2MG SUBLINGUAL TABLET(SUBOXONE) SL SCH (11:27)
[2023-11-04 11:35] LABS: ERYTHROCYTE SEDIMENTATION RATE 55 mm/hr (0-20)
[2023-11-04] MEDS: VANCOMYCIN HCL 1,000 MG, VIAL MATE ADAPTER 1 EACH in D5W 250 ML IV ONE (12:05)
[2023-11-04] MEDS ORDERED: MIRT-89 PO (12:15)
[2023-11-04] MEDS ORDERED: FLUO-96 PO (12:15)
[2023-11-04] MEDS ORDERED: ASPI81TA26 PO (12:15)
[2023-11-04] MEDS ORDERED: HOME MED LIST COMPLETE! XX SCH (12:20)
[2023-11-04] MEDS: NICOTINE 21MG/24HR 1 EA TRANSDERMAL TD SCH (12:57)
[2023-11-04] MEDS: ACETAMINOPHEN TAB 650MG DOSE (2X325MG) PO PRN (12:57)
[2023-11-04] MEDS ORDERED: MORPHINE 4 MG/ML 1ML VIAL IV PRN (13:05)
[2023-11-04 14:00] VITALS: BP 129/65; TEMP 98.4; O2SAT 98
[2023-11-04 15:06] LABS: INR 1.17; PROTHROMBIN TIME 14.6 SECONDS (12.5-14.5)
[2023-11-04] MEDS: GABAPENTIN 400MG CAP PO SCH (15:14)
[2023-11-04] MEDS: ceFAZolin SOD 2 GM in IV 1 EA IV SCH (15:14)
[2023-11-04] MEDS: VANCOMYCIN HCL 1,000 MG, VIAL MATE ADAPTER 1 EACH in D5W 250 ML IV SCH (16:10)
[2023-11-04] MEDS ORDERED: GLUCOSE 4 GM CHEW PO PRN (16:10)
[2023-11-04] MEDS ORDERED: GLUCAGON INJ 1MG VIAL SC PRN (16:10)
[2023-11-04] MEDS ORDERED: DEXTROSE 50% 50ML SYRINGE IV PRN (16:10)
[2023-11-04] MEDS: LR 1,000 ML IV SCH (16:20)
[2023-11-04] MEDS: INSULIN LISPRO (NovoLOG) PER UNIT SC SCH ×2 (17:05→21:00)
[2023-11-04] MEDS: LACTOBACILLUS ACIDOPHILUS CAP (BACID) PO SCH (17:05)
[2023-11-04] MEDS: buPROPion **XL** TABLET 150MG (WELLBUTRIN XL) PO SCH (21:10)
[2023-11-04] MEDS: PRAZOSIN 1 MG CAP PO SCH (21:11)
[2023-11-04] MEDS: MIRTAZAPINE 15 MG TAB PO SCH (21:12)
[2023-11-04 21:28] VITALS: O2SAT 94
[2023-11-05 05:26] VITALS: BP 120/60; TEMP 98.4; O2SAT 93
[2023-11-05 07:43] LABS: HEMATOCRIT 34.9 % (42.0-52.0); HEMOGLOBIN 11.5 g/dl (13.5-17.5); MEAN CORPUSCULAR HEMOGLOBIN 30.7 pg (27.0-33.0); MEAN CORPUSCULAR VOLUME 93.3 fl (80.0-96.0); PLATELET COUNT, AUTOMATED 244 10^3/uL (150-450); RED BLOOD COUNT 3.74 10^6/uL (4.30-6.10); WHITE BLOOD COUNT 19.1 10^3/uL (4.0-10.0)
[2023-11-05 08:16] LABS: VANCOMYCIN LEVEL TROUGH 10.4 UG/ML (10.0-20.0)
[2023-11-05 08:27] LABS: ALBUMIN 2.2 G/DL (3.2-5.2); ALKALINE PHOSPHATASE 84 U/L (46-116); ALT/SGPT 20 U/L (7.0-40); AST/SGOT 9 U/L (<34); BILIRUBIN,TOTAL 0.4 MG/DL (0.3-1.2); BLOOD UREA NITROGEN 19 MG/DL (9-23); CALCIUM LEVEL 7.9 MG/DL (8.3-10.6); CARBON DIOXIDE LEVEL 26 MMOL/L (20-31); CHLORIDE LEVEL 103 MMOL/L (98-107); CREATININE FOR GFR 0.97 MG/DL (0.70-1.30); GLOMERULAR FILTRATION RATE > 60.0 (>49); GLUCOSE, FASTING 121 MG/DL (74-106); SODIUM LEVEL 134 MMOL/L (136-145); TOTAL PROTEIN 5.2 G/DL (5.7-8.2)
[2023-11-05] MEDS: CARVedilol 3.125 MG TAB PO SCH (08:48)
[2023-11-05] MEDS: FLUoxetine 20MG CAP PO SCH (08:49)
[2023-11-05] MEDS: BUPRENORPHINE/NALOXONE 8-2MG SUBLINGUAL TABLET(SUBOXONE) SL SCH (08:49)
[2023-11-05] MEDS: FOLIC ACID 1MG TAB PO SCH (08:49)
[2023-11-05] MEDS: ASPIRIN 81MG ENTERIC TABLET PO SCH (08:49)
[2023-11-05] MEDS: ATORVASTATIN 20 MG TAB PO SCH (08:49)
[2023-11-05] MEDS: CLOPIDOGREL 75 MG TAB PO SCH (08:49)
[2023-11-05 20:10] VITALS: BP 115/61; TEMP 98.6; O2SAT 94
[2023-11-06] VITALS (10 sets, daily range): BP systolic 104–148; BP diastolic 48–73; TEMP 97.2–99.1; O2SAT 90–96
[2023-11-06 07:20] LABS: HEMATOCRIT 33.4 % (42.0-52.0); MEAN CORPUSCULAR HEMOGLOBIN 30.7 pg (27.0-33.0); MEAN CORPUSCULAR HGB CONC 32.9 g/dl (32.0-36.5); MEAN CORPUSCULAR VOLUME 93.3 fl (80.0-96.0); PLATELET COUNT, AUTOMATED 220 10^3/uL (150-450); RED BLOOD COUNT 3.58 10^6/uL (4.30-6.10); WHITE BLOOD COUNT 16.8 10^3/uL (4.0-10.0)
[2023-11-06 07:41] LABS: VANCOMYCIN LEVEL TROUGH 12.9 UG/ML (10.0-20.0)
[2023-11-06 07:42] LABS: ALKALINE PHOSPHATASE 85 U/L (46-116); ALT/SGPT 12 U/L (7.0-40); AST/SGOT 10 U/L (<34); BILIRUBIN,TOTAL 0.3 MG/DL (0.3-1.2); BLOOD UREA NITROGEN 14 MG/DL (9-23); CALCIUM LEVEL 8.1 MG/DL (8.3-10.6); CARBON DIOXIDE LEVEL 28 MMOL/L (20-31); CHLORIDE LEVEL 105 MMOL/L (98-107); CREATININE FOR GFR 0.85 MG/DL (0.70-1.30); GLOMERULAR FILTRATION RATE > 60.0 (>49); GLUCOSE, FASTING 122 MG/DL (74-106); POTASSIUM SERUM 3.9 MMOL/L (3.5-5.1); SODIUM LEVEL 135 MMOL/L (136-145); TOTAL PROTEIN 5.1 G/DL (5.7-8.2)
[2023-11-06] MEDS ORDERED: oxyCODONE 5MG TAB PO PRN (08:35)
[2023-11-06] MEDS ORDERED: fentaNYL 100 MCG/2 ML INJECTION IV PRN (08:35)
[2023-11-06] MEDS ORDERED: HYDROMORPHONE HCL 0.5 MG/ 0.5 ML SYRINGE IV PRN (08:35)
[2023-11-06] MEDS ORDERED: MEPERIDINE 25 MG/ML 1ML VIAL IV PRN (08:35)
[2023-11-06] MEDS ORDERED: ONDANSETRON 4MG 2ML VIAL IV PRN (08:35)
[2023-11-06] MEDS ORDERED: LIDOCAINE 2% 100MG/5ML SDV (FOR ANES.) As Ordered ONE (12:19)
[2023-11-06] MEDS ORDERED: fentaNYL 100 MCG/2 ML INJECTION As Ordered ONE (12:19)
[2023-11-06] MEDS ORDERED: MIDAZOLAM INJ 2MG/2ML VIAL As Ordered ONE (12:19)
[2023-11-06] MEDS ORDERED: propofoL 200 MG/20 ML VIAL As Ordered ONE (12:19)
[2023-11-06] MEDS ORDERED: ONDANSETRON 4MG 2ML VIAL As Ordered ONE (12:19)
[2023-11-06] MEDS ORDERED: ACETAMINOPHEN 1000MG 100ML IV BAG As Ordered ONE (12:30)
[2023-11-06] MEDS: ceFAZolin 2 GM/D5W 50 ML IV BAG As Ordered ONE (12:45)
[2023-11-07 04:01] VITALS: BP 124/59; TEMP 97.5; O2SAT 100
[2023-11-07 07:30] LABS: HEMATOCRIT 29.8 % (42.0-52.0); HEMOGLOBIN 9.7 g/dl (13.5-17.5); MEAN CORPUSCULAR HEMOGLOBIN 30.1 pg (27.0-33.0); MEAN CORPUSCULAR HGB CONC 32.6 g/dl (32.0-36.5); MEAN CORPUSCULAR VOLUME 92.5 fl (80.0-96.0); PLATELET COUNT, AUTOMATED 262 10^3/uL (150-450); RED BLOOD COUNT 3.22 10^6/uL (4.30-6.10)
[2023-11-07 07:52] LABS: ALBUMIN 1.7 G/DL (3.2-5.2); ALKALINE PHOSPHATASE 98 U/L (46-116); ALT/SGPT 13 U/L (7.0-40); AST/SGOT 12 U/L (<34); BILIRUBIN,TOTAL < 0.2 MG/DL (0.3-1.2); BLOOD UREA NITROGEN 20 MG/DL (9-23); CALCIUM LEVEL 8.2 MG/DL (8.3-10.6); CARBON DIOXIDE LEVEL 26 MMOL/L (20-31); CHLORIDE LEVEL 108 MMOL/L (98-107); GLOMERULAR FILTRATION RATE > 60.0 (>49); GLUCOSE, FASTING 230 MG/DL (74-106); POTASSIUM SERUM 3.9 MMOL/L (3.5-5.1); SODIUM LEVEL 140 MMOL/L (136-145); TOTAL PROTEIN 5.1 G/DL (5.7-8.2)
[2023-11-07 12:44] VITALS: BP 124/59; TEMP 98.4; O2SAT 97
[2023-11-07] MEDS: MORPHINE 2 MG/ML 1ML VIAL IV PRN (17:30)
[2023-11-07 20:41] VITALS: BP 128/60; TEMP 97.5; O2SAT 97
[2023-11-07] MEDS: CALCIUM CARBONATE 500 MG CHEW U/D PO ONE (21:31)
[2023-11-07] MEDS: MIRALAX *UNIT DOSE* 17GM PACKET PO PRN (21:41)
[2023-11-07] MEDS: ENOXAPARIN 40MG/0.4ML SYRINGE (J1650 PER 10MG) SC SCH (21:42)
[2023-11-08 05:36] VITALS: BP 99/54; TEMP 97.6; O2SAT 97
[2023-11-08 06:36] VITALS: BP 113/62
[2023-11-08 06:52] LABS: HEMATOCRIT 28.9 % (42.0-52.0); HEMOGLOBIN 9.3 g/dl (13.5-17.5); MEAN CORPUSCULAR HEMOGLOBIN 30.4 pg (27.0-33.0); MEAN CORPUSCULAR HGB CONC 32.2 g/dl (32.0-36.5); MEAN CORPUSCULAR VOLUME 94.4 fl (80.0-96.0); PLATELET COUNT, AUTOMATED 289 10^3/uL (150-450); RED BLOOD COUNT 3.06 10^6/uL (4.30-6.10); WHITE BLOOD COUNT 13.5 10^3/uL (4.0-10.0)
[2023-11-08 07:12] LABS: ALBUMIN 1.7 G/DL (3.2-5.2); ALKALINE PHOSPHATASE 89 U/L (46-116); ALT/SGPT 22 U/L (7.0-40); AST/SGOT 27 U/L (<34); BILIRUBIN,TOTAL < 0.2 MG/DL (0.3-1.2); BLOOD UREA NITROGEN 17 MG/DL (9-23); CALCIUM LEVEL 7.7 MG/DL (8.3-10.6); CARBON DIOXIDE LEVEL 28 MMOL/L (20-31); CHLORIDE LEVEL 108 MMOL/L (98-107); CREATININE FOR GFR 0.69 MG/DL (0.70-1.30); GLOMERULAR FILTRATION RATE > 60.0 (>49); GLUCOSE, FASTING 159 MG/DL (74-106); POTASSIUM SERUM 3.8 MMOL/L (3.5-5.1); SODIUM LEVEL 139 MMOL/L (136-145); TOTAL PROTEIN 4.9 G/DL (5.7-8.2)
[2023-11-08] MEDS: CLOPIDOGREL 75 MG TAB PO SCH (08:21)
[2023-11-08] MEDS: OMEPRAZOLE 20MG CAP PO SCH (08:22)
[2023-11-08] MEDS: VANCOMYCIN HCL 750 MG, VIAL MATE ADAPTER 1 EACH in D5W 250 ML IV SCH (16:31)
[2023-11-09 02:09] VITALS: BP 129/63; TEMP 97.5; O2SAT 96
[2023-11-09 05:37] VITALS: BP 124/61; TEMP 97.7; O2SAT 95
[2023-11-09 07:23] LABS: HEMATOCRIT 30.1 % (42.0-52.0); HEMOGLOBIN 9.6 g/dl (13.5-17.5); MEAN CORPUSCULAR HEMOGLOBIN 29.9 pg (27.0-33.0); MEAN CORPUSCULAR HGB CONC 31.9 g/dl (32.0-36.5); MEAN CORPUSCULAR VOLUME 93.8 fl (80.0-96.0); PLATELET COUNT, AUTOMATED 309 10^3/uL (150-450); RED BLOOD COUNT 3.21 10^6/uL (4.30-6.10); WHITE BLOOD COUNT 9.2 10^3/uL (4.0-10.0)
[2023-11-09 07:42] LABS: VANCOMYCIN LEVEL TROUGH 15.5 UG/ML (10.0-20.0)
[2023-11-09 07:43] LABS: ALBUMIN 1.8 G/DL (3.2-5.2); ALKALINE PHOSPHATASE 87 U/L (46-116); ALT/SGPT 17 U/L (7.0-40); AST/SGOT 16 U/L (<34); BILIRUBIN,TOTAL < 0.2 MG/DL (0.3-1.2); BLOOD UREA NITROGEN 16 MG/DL (9-23); CALCIUM LEVEL 7.6 MG/DL (8.3-10.6); CARBON DIOXIDE LEVEL 30 MMOL/L (20-31); CHLORIDE LEVEL 108 MMOL/L (98-107); GLOMERULAR FILTRATION RATE > 60.0 (>49); GLUCOSE, FASTING 99 MG/DL (74-106); POTASSIUM SERUM 4.2 MMOL/L (3.5-5.1); SODIUM LEVEL 140 MMOL/L (136-145); TOTAL PROTEIN 5.1 G/DL (5.7-8.2)
[2023-11-09 12:00] VITALS: BP 122/64; TEMP 97.9; O2SAT 96
[2023-11-09 21:46] VITALS: BP 103/57; TEMP 98.1; O2SAT 96
[2023-11-09] MEDS: KETOROLAC 30 MG/ML 1ML VIAL IV PRN (21:58)
[2023-11-10 04:00] VITALS: BP 114/68; TEMP 98; O2SAT 96
[2023-11-10 08:10] LABS: HEMATOCRIT 31.9 % (42.0-52.0); HEMOGLOBIN 10.4 g/dl (13.5-17.5); MEAN CORPUSCULAR HEMOGLOBIN 30.6 pg (27.0-33.0); MEAN CORPUSCULAR HGB CONC 32.6 g/dl (32.0-36.5); MEAN CORPUSCULAR VOLUME 93.8 fl (80.0-96.0); PLATELET COUNT, AUTOMATED 331 10^3/uL (150-450)
[2023-11-10 08:26] VITALS: BP 110/70
[2023-11-10 08:28] LABS: BLOOD UREA NITROGEN 16 MG/DL (9-23); CALCIUM LEVEL 7.5 MG/DL (8.3-10.6); CARBON DIOXIDE LEVEL 30 MMOL/L (20-31); CHLORIDE LEVEL 105 MMOL/L (98-107); CREATININE FOR GFR 0.71 MG/DL (0.70-1.30); GLOMERULAR FILTRATION RATE > 60.0 (>49); GLUCOSE, FASTING 113 MG/DL (74-106); POTASSIUM SERUM 4.3 MMOL/L (3.5-5.1); SODIUM LEVEL 138 MMOL/L (136-145)
[2023-11-10 09:12] LABS: ATYPICAL LYMPH 2 % (0-5); EOSINOPHILS 1 % (0-3); LYMPHOCYTES 17 % (16-44); METAMYELOCYTES 1 % (0-0); MONOCYTES 5 % (0-5); NEUTROPHILS 69 % (28-66)
[2023-11-10 09:13] LABS: PLATELET ESTIMATE NORMAL (NORMAL)
[2023-11-10 12:00] VITALS: BP 118/67; TEMP 97.1; O2SAT 97
[2023-11-10] MEDS ORDERED: LEVO1TAB40 PO (12:26)
[2023-11-10] MEDS ORDERED: RISATAB3 PO (12:26)
[2023-11-10] MEDS ORDERED: CEFD1CAP9 PO (14:28)
[2023-11-10] MEDS ORDERED: DOXY100T PO (14:28)
== END 2023-11-10 16:00 | disposition home or self-care (01) | DRG 315 ==
LOC: M ED 08:03 → EDBD 08:03 → M ED INP 11:57 → EEVIPCON 11:57 → M MS5PR 14:00
PROVIDERS: ADMIT Internal Medicine; ATTEND Internal Medicine Nephrology
PROC: 0HDFXZZ Extraction of Right Hand Skin, External Approach (ICD-10-PCS; 2023-11-06)
PROC: 0MB30ZZ Excision of Right Elbow Bursa and Ligament, Open Approach (ICD-10-PCS; principal; 2023-11-06 09:15)
DX: M71.121 Other infective bursitis, right elbow (principal); E11.42 Type 2 diabetes mellitus with diabetic polyneuropathy; F43.10 Post-traumatic stress disorder, unspecified; F32.A Depression, unspecified; F41.9 Anxiety disorder, unspecified; I10 Essential (primary) hypertension; I25.10 Atherosclerotic heart disease of native coronary artery without angina pectoris; Z95.5 Presence of coronary angioplasty implant and graft; Z90.49 Acquired absence of other specified parts of digestive tract; F17.210 Nicotine dependence, cigarettes, uncomplicated; Z79.82 Long term (current) use of aspirin; Z79.84 Long term (current) use of oral hypoglycemic drugs; Z79.899 Other long term (current) drug therapy; L08.9 Local infection of the skin and subcutaneous tissue, unspecified; M54.30 Sciatica, unspecified side; G89.29 Other chronic pain